=== PATIENT | male | born 2000 | race Caucasian/White ===

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

== ENCOUNTER 2020-03-15 18:31 | Emergency (ER) | payer BC ==
[2020-03-15 18:42] VITALS: BP 134/86; PULSE 96; TEMP 98
[2020-03-15] MEDS ORDERED: LIDOCAINE 1% INJ 10MG/ML (20 ML MDV) SQ ONE (18:57)
[2020-03-15] MEDS ORDERED: DIPH,PERTUS(ACELL)TETVAC-LF 0.5 ML VIAL IM ONE (18:57)
--- NOTE | 2020-03-15 19:06 | ED ---
Wound/Laceration HPI - General Chief Complaint: Wound/Laceration Stated Complaint: foot injury Time Seen by Provider: 03/15/20 18:42 Source: patient, RN notes reviewed Mode of arrival: ambulatory Limitations: no limitations - History of Present Illness Initial Comments: 19-year-old male presents emergency department chief complaint of laceration to his left foot. Patient states he is barefoot in his room lifting weights when he lifted a weight up over his head striking the light. Patient states he broke falling onto his foot causing a laceration. He cannot relate his last tetanus. Patient states that he did not notice any foreign body minimal bleeding at this time full range of motion no paresthesias. - Related Data Previous Rx's Medication Instructions Recorded Amoxicillin/Potassium Clav 1 tab PO Q12HR #20 tab 11/10/17 [Augmentin 875-125 Tablet] Allergies Allergy/AdvReac Type Severity Reaction Status Date / Time No Known Allergies Allergy Verified 03/15/20 18:42 Review of Systems ROS Statement: Those systems with pertinent positive or pertinent negative responses have been documented in the HPI. ROS Other: All systems not noted in ROS Statement are negative. Past Medical History Past Medical History: No Reported History History of Any Multi-Drug Resistant Organisms: None Reported Past Surgical History: Adenoidectomy Past Psychological History: No Psychological Hx Reported Smoking Status: Never smoker Past Alcohol Use History: None Reported Past Drug Use History: None Reported General Exam Limitations: no limitations General appearance: alert, in no apparent distress Head exam: Present: atraumatic, normocephalic, normal inspection Respiratory exam: Present: normal lung sounds bilaterally. Absent: respiratory distress, wheezes, rales, rhonchi, stridor Cardiovascular Exam: Present: regular rate, normal rhythm, normal heart sounds. Absent: systolic murmur, diastolic murmur, rubs, gallop, clicks Extremities exam: Present: other (Left foot there is a 2 cm laceration just proximal to the digits, full range of motion neurovascular intact no active bleeding) Course Vital Signs 03/15/20 18:38 Temperature 98.0 F Pulse Rate 96 Respiratory 18 Rate Blood Pressure 134/86 O2 Sat by Pulse 98 Oximetry Procedures - Laceration Laceration #1 Consent Obtained: verbal consent Indication: laceration Site: foot (Left) Size (cm): 2 Description: linear Depth: simple, single layer Anesthetic Used: lidocaine 1%, without epi Anesthesia Technique: local infiltration Amount (mls): 4 Pre-repair: wound explored, irrigated extensively, deep structures intact Type of Sutures: nylon Size of Sutures: 4-0 Number of Sutures: 4 Technique: simple, interrupted Patient Tolerated Procedure: well, no complications Medical Decision Making - Medical Decision Making Laceration on the left foot was closed using sutures. X-ray obtained no acute foreign body. Patient we discharge wound care instructions given. Return parameters were given. Disposition Clinical Impression: Laceration of left foot Disposition: HOME SELF-CARE Condition: Stable Instructions (If sedation given, give patient instructions): Laceration (ED), Care For Your Stitches (ED) Additional Instructions: Have sutures removed in 10 days.Please return to the Emergency Department if symptoms worsen or any other concerns. Is patient prescribed a controlled substance at d/c from ED?: No Referrals: Thom Salinas MD [Primary Care Provider] - 1-2 days Time of Disposition: 19:29
--- NOTE | 2020-03-15 19:21 | XR ---
EXAMINATION TYPE: XR foot limited LT DATE OF EXAM: 03/15/2020 CLINICAL HISTORY: laceration, r/o FB TECHNIQUE: Frontal, lateral images of the left foot are obtained. COMPARISON: None. FINDINGS: There is no acute fracture/dislocation evident. The joint spaces appear within normal miner its. The overlying soft tissue appears unremarkable. No radiopaque foreign body identified. IMPRESSION: There is no acute fracture or dislocation. ICD 10 NO FRACTURE, INITIAL EVALUATION
[2020-03-15 19:41] VITALS: RESP 17
== END 2020-03-15 19:41 | disposition home or self-care (01) ==
LOC: EC 18:31
DX: S91.312A Laceration without foreign body, left foot, initial encounter (principal); Z23 Encounter for immunization; W20.8XXA Other cause of strike by thrown, projected or falling object, initial encounter
CPT/HCPCS: 73620; 90715; 99283; 90471; 12001; J2001